=== PATIENT | female | born 1995 | race Caucasian/White ===

== ENCOUNTER 2019-01-22 12:59 | Emergency (ER) | payer SELFPAY ==
[~2019-01-22] VITALS: Ht 165.1 cm; Wt 50.3 kg
[2019-01-22] MEDS: predniSONE 20 MG TABLET PO ONE (16:22)
[2019-01-22] MEDS: CEphaleXIN 500 MG CAPSULE PO ONE (16:22)
[2019-01-22] MEDS ORDERED: CEphaleXIN 500 MG CAPSULE ONE (16:23)
--- NOTE | 2019-01-22 16:23 | NUR ---
PT WAS EVALUATED BY DR MALIN. PT WAS D/C'd TO HOME. D/C INSTRUCTIONS GIVEN TO THE PT.
[2019-01-22] MEDS ORDERED: predniSONE 20 MG TABLET ONE (16:24)
[2019-01-22 16:26] VITALS: BP 126/78
== END 2019-01-22 16:27 | disposition home or self-care (01) ==
LOC: ER 12:59
DX: B34.9 Viral infection, unspecified (principal)
CPT/HCPCS: 36415; 86403; 87070; 87400; 99283; J7512; A4663